=== PATIENT | male | born 1985 | race Caucasian/White ===

== ENCOUNTER 2020-12-23 17:37 | Outpatient (CLI) | payer SELFPAY ==
[2020-12-23 18:12] VITALS: BP 138/71; PULSE 73; RESP 16; TEMP 37.1; O2SAT 100
[2020-12-23 18:14] VITALS: BMI 27.5
[2020-12-23 19:40] VITALS: BP 141/75; PULSE 87; RESP 18; TEMP 36.8; O2SAT 100
== END 2020-12-23 19:41 | disposition home or self-care (01) ==
LOC: INF 17:43
PROVIDERS: PCP Family Medicine; Visit Provider Nurse Practitioner
DX: J06.9 Acute upper respiratory infection, unspecified (principal)
CPT/HCPCS: 96372

== ENCOUNTER → 2021-10-10 10:41 | Outpatient (CLI) | payer OTHER, SELFPAY | PROVIDERS: PCP Family Medicine; Visit Provider Nurse Practitioner | DX: U07.1 COVID-19 (principal) | CPT/HCPCS: C9803; U0003; U0005 ==

== ENCOUNTER → 2022-04-18 15:40 | Outpatient (CLI) | payer OTHER, SELFPAY ==
[2022-04-18 17:41] LABS: Alanine Aminotransferase 65 U/L (12-78); Albumin Level 4.5 g/dl (3.5-5.0); Albumin/Globulin Ratio 1.5 (1.1-1.8); Alkaline Phosphatase 84 U/L (38-126); Aspartate Amino Transferase 48 U/L (17-59); Bilirubin,Total 0.6 mg/dl (0.2-1.3); Blood Urea Nitrogen 15 mg/dl (9-20); Calcium 9.6 mg/dl (8.4-10.2); Carbon Dioxide 28 mmol/L (22.0-30.0); Chloride 106 mmol/L (98-107); Chol/HDL Ratio 9.3 (1-3.5); Cholesterol 224 mg/dl (140-200); Estimated Glomerular Filt Rate 84 ml/min (>60); GFR (African American) 101 ML/MIN (>60); Globulin 3.1 g/dL (1.3-3.2); Glucose 91 mg/dl (74-100); HDL Cholesterol 24 mg/dl (40-60); Sodium 140 mmol/L (136-145); Total Protein,Serum 7.6 g/dl (6.3-8.2)
[2022-04-18 17:47] LABS: Triglycerides 513 mg/dl (30-150)
[2022-04-18 17:52] LABS: Direct LDL Cholesterol 87.63 mg/dL (100-129)
[2022-04-18 17:58] LABS: Free T4 (Free Thyroxine) 0.82 ng/dl (0.78-2.19)
[2022-04-20 07:11] LABS: Triiodothyronine (T3) Free 3.3 pg/mL (2.0-4.4)
== END ==
PROVIDERS: PCP Nurse Practitioner Family; Visit Provider Nurse Practitioner Family
DX: E03.9 Hypothyroidism, unspecified (principal); E78.1 Pure hyperglyceridemia; I10 Essential (primary) hypertension
CPT/HCPCS: 36415; 80053; 80061; 84439; 84443; 84481

== ENCOUNTER → 2023-03-11 12:46 | Outpatient (CLI) | payer OTHER, SELFPAY ==
[2023-03-11 12:01] LABS: Microscopic, Urine URINE MICROSCOPIC (MICROSCOPIC)
[2023-03-11 12:12] LABS: Basophils # 0.1 K/mm3 (0-0.2); Basophils % 0.9 % (0.1-2.0); Eosinophils # 0.2 K/mm3 (0.0-0.4); Eosinophils % 3.5 % (0.1-12.0); Hematocrit 44.6 % (42.0-52.0); Hemoglobin 14.8 g/dL (14.1-18.0); Lymphocytes # 2.3 K/mm3 (0.7-4.5); Lymphocytes % 33.6 % (10-50); Mean Corpuscular HGB Conc 33.1 g/dL (31.8-35.4); Mean Corpuscular Hemoglobin 28.7 pg (27.0-31.2); Mean Corpuscular Volume 86.8 fl (80-94); Mean Platelet Volume 7.3 fl (7.4-10.4); Monocytes # 0.6 K/mm3 (0.1-1.0); Neutrophils # 3.7 K/mm3 (1.8-7.8); Platelet Count 292 K/mm3 (142-424); Red Blood Count 5.14 M/mm3 (4.60-6.20); Red Cell Distribution Width 13.6 % (11.5-17.5); White Blood Count 6.9 K/mm3 (4.8-10.8)
[2023-03-11 12:13] LABS: Appearance,Urine CLEAR (Clear); Bilirubin,Urine Negative (Negative); Blood, Urine 2+ (Negative); Color,Urine YELLOW (Yellow); Glucose,Urine (UA) Negative (Negative); Ketones,Urine Negative (Negative); Leukocyte Esterase,Urine Negative (Negative); Nitrate,Urine Negative (Negative); Protein,Urine Negative (Negative); Specific Gravity, Urine 1.025 (1.005-1.030); Urobilinogen,Urine 0.2 EU/dl (0.2)
[2023-03-11 12:42] LABS: Bacteria,Urine Trace /lpf; Mucus,Urine Trace /lpf; Squamous Epithelial Cell,Urine Occasional #/hpf (0-5); WBC,Urine Occasional #/hpf (0-3)
[2023-03-11 12:57] LABS: Alanine Aminotransferase 70 U/L (12-78); Albumin Level 4.9 g/dl (3.5-5.0); Albumin/Globulin Ratio 1.6 (1.1-1.8); Alkaline Phosphatase 59 U/L (38-126); Anion Gap 15.4 mEq/L (5-15); Aspartate Amino Transferase 57 U/L (17-59); Bilirubin,Total 0.8 mg/dl (0.2-1.3); Blood Urea Nitrogen 18 mg/dl (9-20); Calcium 9.4 mg/dl (8.4-10.2); Carbon Dioxide 27 mmol/L (22.0-30.0); Chloride 100 mmol/L (98-107); Chol/HDL Ratio 8.1 (1-3.5); Cholesterol 258 mg/dl (140-200); Estimated Glomerular Filt Rate 75 ml/min (>60); GFR (African American) 90 ML/MIN (>60); Glucose 82 mg/dl (74-100); HDL Cholesterol 32 mg/dl (40-60); Potassium 4.4 mmoL/L (3.5-5.1); Sodium 138 mmol/L (136-145); Total Protein,Serum 7.9 g/dl (6.3-8.2); Triglycerides 287 mg/dl (30-150); VLDL Cholesterol 57 mg/dL (0-40)
[2023-03-11 13:08] LABS: Direct LDL Cholesterol 145.39 mg/dL (100-129)
[2023-03-11 13:11] LABS: 25-OH Vitamin D, Total 29.1 ng/mL (30-100)
[2023-03-11 13:24] LABS: Hemoglobin A1C 5.5 % (4.0-6.0)
[2023-03-11 13:26] LABS: Prostate Specific Ag Screen 0.5 ng/ml (0.0-4.0); Thyroid Stimulating Hormone 5.48 uIU/mL (0.465-4.68)
[2023-03-11 13:45] LABS: Vitamin B12 452 pg/mL (239-931)
[2023-03-12 09:29] LABS: Testosterone,Total 234 ng/dL (264-916)
[2023-03-13 22:07] LABS: Neisseria gonorrhoeae, NAA Negative (Negative)
== END ==
PROVIDERS: PCP Nurse Practitioner Family; Visit Provider Nurse Practitioner Family
DX: Z00.00 Encounter for general adult medical examination without abnormal findings (principal); I10 Essential (primary) hypertension; E03.9 Hypothyroidism, unspecified; E55.9 Vitamin D deficiency, unspecified; R53.83 Other fatigue; Z13.220 Encounter for screening for lipoid disorders; N52.9 Male erectile dysfunction, unspecified; E66.9 Obesity, unspecified; Z68.35 Body mass index [BMI] 35.0-35.9, adult; Z12.5 Encounter for screening for malignant neoplasm of prostate; Z13.1 Encounter for screening for diabetes mellitus
CPT/HCPCS: 80053; 80061; 81001; 82306; 82607; 83036; 84403; 84443; 85025; 87086; 87491; 87591; G0103

== ENCOUNTER 2023-11-10 08:31 | Outpatient (CLI) | payer OTHER, SELFPAY ==
[2023-11-10 09:55] LABS: Chol/HDL Ratio 5.5 (1-3.5); Cholesterol 154 mg/dl (140-200); HDL Cholesterol 28 mg/dl (40-60); Triglycerides 113 mg/dl (30-150); VLDL Cholesterol 23 mg/dL (0-40)
[2023-11-10 10:10] LABS: 25-OH Vitamin D, Total 39.5 ng/mL (30-100)
[2023-11-10 10:11] LABS: Free T4 (Free Thyroxine) 1.04 ng/dl (0.78-2.19)
[2023-11-10 10:12] LABS: Direct LDL Cholesterol 94.03 mg/dL (100-129)
[2023-11-10 10:26] LABS: Thyroid Stimulating Hormone 4.82 uIU/mL (0.465-4.68)
[2023-11-11 04:09] LABS: Testosterone,Total 352 ng/dL (264-916)
== END 2023-11-10 23:59 | disposition home or self-care (01) ==
LOC: LAB 08:32
PROVIDERS: PCP Nurse Practitioner Family; Visit Provider Nurse Practitioner Family
DX: E78.5 Hyperlipidemia, unspecified (principal); E03.9 Hypothyroidism, unspecified; E29.1 Testicular hypofunction; N52.9 Male erectile dysfunction, unspecified; E66.9 Obesity, unspecified; Z68.32 Body mass index [BMI] 32.0-32.9, adult
CPT/HCPCS: 36415; 80061; 82306; 84403; 84439; 84443

== ENCOUNTER 2025-04-20 11:15 | Outpatient (CLI) | payer OTHER, SELFPAY ==
[2025-04-20 11:31] LABS: Hematocrit 44.2 % (42.0-52.0); Hemoglobin 15.0 g/dL (14.1-18.0); Immature Granulocytes % 0.1 %; Mean Corpuscular HGB Conc 33.9 g/dL (31.8-35.4); Mean Corpuscular Hemoglobin 29.8 pg (27.0-31.2); Mean Corpuscular Volume 87.7 fl (80-94); Nucleated Red Blood Cells % 0 %; Platelet Count 290 K/mm3 (142-424); Red Blood Count 5.04 M/mm3 (4.60-6.20); Red Cell Distribution Width-SD 42.4 fL; White Blood Count 6.8 K/mm3 (4.8-10.8)
[2025-04-20 12:05] LABS: Alanine Aminotransferase 38 U/L (12-78); Albumin Level 4.9 g/dl (3.5-5.0); Albumin/Globulin Ratio 1.8 (1.1-1.8); Alkaline Phosphatase 56 U/L (38-126); Anion Gap 12.7 mEq/L (5-15); Aspartate Amino Transferase 34 U/L (17-59); Bilirubin,Total 0.8 mg/dl (0.2-1.3); Blood Urea Nitrogen 16 mg/dl (9-20); Calcium 10.4 mg/dl (8.4-10.2); Carbon Dioxide 26 mmol/L (22.0-30.0); Chloride 106 mmol/L (98-107); Cholesterol 147 mg/dl (140-200); Creatinine,Serum 1.10 mg/dl (0.66-1.25); Estimated Glomerular Filt Rate 74 ml/min (>60); GFR (African American) 89 ML/MIN (>60); Globulin 2.7 g/dL (1.3-3.2); Glucose 97 mg/dl (74-100); HDL Cholesterol 35 mg/dl (40-60); Potassium 4.7 mmoL/L (3.5-5.1); Sodium 140 mmol/L (136-145); Total Protein,Serum 7.6 g/dl (6.3-8.2); Triglycerides 95 mg/dl (30-150)
[2025-04-20 12:24] LABS: Free T4 (Free Thyroxine) 1.22 ng/dl (0.78-2.19)
[2025-04-20 12:36] LABS: Thyroid Stimulating Hormone 4.68 uIU/mL (0.465-4.68)
== END 2025-04-20 23:59 | disposition home or self-care (01) ==
LOC: LAB 11:16
PROVIDERS: PCP Nurse Practitioner Family; Visit Provider Nurse Practitioner Family
DX: I10 Essential (primary) hypertension (principal); E03.9 Hypothyroidism, unspecified; E78.1 Pure hyperglyceridemia
CPT/HCPCS: 36415; 80053; 80061; 84439; 84443; 85025